=== PATIENT | female | born 1970 | race Caucasian/White ===

== ENCOUNTER 2017-03-16 05:48 | Emergency (ER) | payer SELFPAY ==
[2017-03-16 06:16] VITALS: BP 145/82
--- NOTE | 2017-03-16 09:11 | Emergency Department Report ---
ED Back Pain/Injury HPI - General Chief Complaint: Extremity Problem,Nontraumatic Stated Complaint: R LEG PAIN Time Seen by Provider: 03/16/17 08:39 Source: patient, family Limitations: No Limitations - History of Present Illness Initial Comments: Patient here with her daughter and patient reports that she is having shooting pain from her right buttocks down her right leg. She says she's been having this issue for over a year. She denies any injury. She said pain is 7 out of 10 to right leg and 9 at attend to her buttocks. Pain is burning pain. Denies any nausea or vomiting. Denies any urinary frequency or urgency. Denies any urinary burning. Denies any fever or chills. Denies any abdominal pain. Denies any loss of bowel or bladder function. He says she's never had an x-ray of her back and have not been diagnosed of any back problem. She says that she usually takes Motrin and it helps a little. 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 Last menstrual period was 03/09/2017. MD Complaint: back pain Onset/Timin Similar Symptoms Previously: Yes Place: work Radiation: buttocks, right leg Severity: severe Severity scale (0 -10): 9 Quality: burning Consistency: intermittent Improves With: immobilization Worsens With: movement, walking Context: while lifting, bending Associated Symptoms: denies: confusion, weakness, chest pain, numbness, difficulty walking, cough, difficulty urinating, diaphoresis, incontinence, fever/chills, constipation, headaches, abdominal pain, loss of appetite, malaise , nausea/vomiting, rash, seizure, shortness of breath, syncope Treatments Prior to Arrival: NSAIDS - Related Data Previous Rx's Medication Instructions Recorded Last Taken Type Cyclobenzaprine [Flexeril] 10 mg PO TID PRN #15 tablet 03/16/17 Unknown Rx Ibuprofen [Motrin] 600 mg PO Q8H PRN #15 tablet 03/16/17 Unknown Rx Allergies Allergy/AdvReac Type Severity Reaction Status Date / Time No Known Allergies Allergy Unverified 03/16/17 06:07 ED Review of Systems ROS: Stated complaint: R LEG PAIN Other details as noted in HPI Comment: All other systems reviewed and negative Constitutional: no symptoms reported Respiratory: no symptoms reported Cardiovascular: denies: chest pain, palpitations, edema, syncope Gastrointestinal: denies: abdominal pain, nausea, vomiting, diarrhea, constipation, hematemesis Musculoskeletal: arthralgia, other (denies in pain from right buttocks to right leg). denies: back pain, joint swelling, myalgia Skin: denies: rash Neurological: denies: headache, weakness, numbness, paresthesias, confusion, abnormal gait, vertigo ED Past Medical Hx - Past Medical History Previous Medical History?: Yes Hx Hypertension: Yes Additional medical history: Back pain - Surgical History Past Surgical History?: No - Family History Family history: no significant - Social History Smoking Status: Never Smoker Substance Use Type: None - Medications Home Medications: Home Medications Medication Instructions Recorded Confirmed Last Taken Type Cyclobenzaprine [Flexeril] 10 mg PO TID PRN #15 tablet 03/16/17 Unknown Rx Ibuprofen [Motrin] 600 mg PO Q8H PRN #15 tablet 03/16/17 Unknown Rx ED Physical Exam - General Limitations: No Limitations General appearance: alert, in no apparent distress - Head Head exam: Present: atraumatic, normocephalic, normal inspection - Eye Eye exam: Present: normal appearance, PERRL, EOMI. Absent: nystagmus Pupils: Present: normal accommodation - ENT ENT exam: Present: normal exam, normal orophraynx, mucous membranes moist - Neck Neck exam: Present: normal inspection, full ROM, other (no C-spine tenderness). Absent: tenderness, meningismus, lymphadenopathy - Respiratory Respiratory exam: Present: normal lung sounds bilaterally. Absent: respiratory distress, chest wall tenderness - Cardiovascular Cardiovascular Exam: Present: regular rate, normal rhythm, normal heart sounds. Absent: systolic murmur, diastolic murmur - GI/Abdominal GI/Abdominal exam: Present: soft, normal bowel sounds. Absent: distended, tenderness, guarding, rebound, rigid, organomegaly, mass, bruit, pulsatile mass , hernia - Extremities Exam Extremities exam: Present: normal inspection, full ROM, normal capillary refill , other (no clubbing, cyanosis or edema to extremities. +2 pulses to all extremities. Neurovascular compromise). Absent: tenderness, pedal edema, joint swelling, calf tenderness - Expanded Lower Extremity Exam Right Hip exam: Present: normal inspection, full ROM, pelvic stability. Absent: tenderness, swelling, abrasion, laceration, ecchymosis, deformity, crepidus, dislocation, erythema, external rotation, internal rotation, shortening Upper Leg exam: Present: normal inspection, full ROM. Absent: tenderness, swelling, abrasion, laceration, ecchymosis, deformity, crepidus, dislocation, erythema Knee exam: Present: normal inspection, full ROM, full knee extension. Absent: tenderness, swelling, abrasion, laceration, ecchymosis, deformity, crepidus, dislocation, erythema, effusion, pain w/ pronation/supination, posterior draw sign, pain/laxity with valgus, pain/laxity with varus Lower Leg exam: Present: normal inspection, full ROM. Absent: tenderness, swelling, abrasion, laceration, ecchymosis, deformity, crepidus, dislocation, erythema, palpable cord, Isaac's sign Ankle exam: Present: normal inspection, full ROM. Absent: tenderness, swelling , abrasion, laceration, ecchymosis, deformity, crepidus, dislocation, erythema Foot/Toe exam: Present: normal inspection, full ROM. Absent: tenderness, swelling, abrasion, laceration, ecchymosis, deformity, crepidus, dislocation, erythema, amputation, puncture wound, foreign body, calcaneal tenderness, tenderness at base of 5th metatarsal, nail avulsion, subungual hematoma Neuro vascular tendon exam: Present: no vascular compromise. Absent: pulse deficit, abnormal cap refill, motor deficit, sensory deficit, tendon deficit, extremity cold to touch, pallor, abnormal 2-point discrimination, decreased fine /light touch, foot drop, peroneal nerve deficit, significant pain with passive ROM of distal joint Gait: Positive: observed and normal - Back Exam Back exam: Present: normal inspection, full ROM, CVA tenderness (L). Absent: tenderness, CVA tenderness (R), muscle spasm, paraspinal tenderness, vertebral tenderness, rash noted - Expanded Back Exam Expanded Back exam: Absent: saddle anesthesia Back exam: Negative Straight Leg Raising: Left, Right - Neurological Exam Neurological exam: Present: alert, oriented X3, normal gait, reflexes normal. Absent: motor sensory deficit - Expanded Neurological Exam Expanded Neurological exam: Absent: innattentive, memory loss-remote event, memory loss- recent event, ataxia, receptive aphasia, expressive aphasia, total aphasia, tremor, protecting the airway Patient oriented to: Present: person, place, time Speech: Present: fluid speech Cranial nerves: EOM's Intact: Normal, Gag Reflex: Normal, Tongue Deviation: Normal, Nystagmus: Normal, Facial Sensation: Normal Cerebellar function: Romberg: Normal Upper motor neuron: Pronator Drift: Normal, Sensory Extinction: Normal Sensory exam: Upper Extremity Light Touch: Normal, Upper Extremity Temperature: Normal, UE 2 Point Discrimination: Normal, Lower Extremity Light Touch: Normal, Lower Extremity Temperature: Normal, LE 2 Point Discrimination: Normal Motor strength exam: RUE: 5, LUE: 5, RLE: 5, LLE: 5 DTR: bicep (R): 2+, bicep (L): 2+, tricep (R): 2+, tricep (L): 2+, knee (R): 2+ , knee (L): 2+, ankle (R): 2+, ankle (L): 2+ Best Eye Response ([place]): (4) open spontaneously Best Motor Response (Kam): (6) obeys commands Best Verbal Response (Kam): (5) oriented Kam Total: 15 - Psychiatric Psychiatric exam: Present: normal affect, normal mood - Skin Skin exam: Present: warm, dry, intact, normal color. Absent: rash ED Course Vital Signs 03/16/17 03/16/17 06:09 09:28 Temperature 98 F Pulse Rate 68 Respiratory 12 16 Rate Blood Pressure 145/82 O2 Sat by Pulse 97 Oximetry - Reevaluation(s) Reevaluation #1: 03/16/17 10:26 Patient given Percocet 5/325 2 tablets and Flexeril 10 mg by mouth for relief of pain. ED Medical Decision Making - Lab Data Lab Results 03/16/17 Range/Units Unknown Urine Color Yellow (Yellow) Urine Turbidity Clear (Clear) Urine pH 6.0 (5.0-7.0) Ur Specific Rh[place] 1.018 (1.003-1.030) Urine Protein <15 mg/dl (Negative) mg/dL Urine Glucose (UA) Neg (Negative) mg/dL Urine Ketones Neg (Negative) mg/dL Urine Blood Mod (Negative) Urine Nitrite Neg (Negative) Urine Bilirubin Neg (Negative) Urine Urobilinogen < 2.0 (<2.0) mg/dL Ur Leukocyte Esterase Tr (Negative) Urine WBC (Auto) 5.0 (0.0-6.0) /HPF Urine RBC (Auto) 2.0 (0.0-6.0) /HPF U Epithel Cells (Auto) 2.0 (0-13.0) /HPF Urine Bacteria (Auto) 1+ (Negative) /HPF - Radiology Data Radiology results: report reviewed X-ray of lumbar sacral spine reveals mild to moderate degenerative disc disease and [place] arthropathy at L4 to 5 and L5 to S1. No acute processes. There is normal bony mineralization. Normal height and alignment of the vertebral body. No evidence for fracture or bone lesion - Medical Decision Making ED course: Patient here reports pain radiating from her right buttocks down her right leg. 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 X- ray of lumbar sacral spine reveal patient with mild to moderate degenerative disc disease and F[place] Arthropathy at L4 to L5 and L5 to S1. This was discussed the patient in detail and I discussed with her that she needs to follow-up with orthopedic doctor and they may refer her to that specializes in spine. She was given [place] 5/325 2 tablets and Flexeril 10 mg by mouth in emergency room which relieved her pain. Patient is able to ambulate without any difficulties and she has intact neurological and back exam. Patient also had urinalysis which showed mild bladder infection and I discussed with her the apparent antibiotic for 5 days. Patient does have a primary care physician that she says she goes to an [place] so I discussed with her that she needs to follow up with primary care physician regarding chronic back pain and follow- up urinalysis for urinary tract infection. I also discussed with her that I will refer her to orthopedic doctor and she'll need to call to set up follow-up visit for degenerative disc disease with radiculopathy pain. Patient with daughter and they voiced understanding of discharge diagnosis. Patient will be discharged home in stable condition from the emergency room with prescription for Flexeril and Motrin. Critical care attestation.: If time is entered above; I have spent that time in minutes in the direct care of this critically ill patient, excluding procedure time. ED Disposition Clinical Impression: Lumbar radiculopathy, right, Degenerative disc disease, lumbar, Acute cystitis without hematuria, Facet arthropathy, lumbosacral Disposition: DC-01 TO HOME OR SELFCARE Is pt being admited?: No Does the pt Need Aspirin: No Condition: Stable Instructions: Lumbar Radiculopathy (ED), Arthralgia (ED), Degenerative Disc Disease (ED), Urinary Tract Infection in Women (ED) Additional Instructions: follow-up with your primary care doctor Follow up with orthopedic doctor as instructed. The referral information and discharge paperwork Please do not drive or operate heavy machinery while taking Flexeril as this medication causes drowsiness Headache Motrin as needed for pain per prescription. Prescriptions: Cyclobenzaprine [Flexeril] 10 mg PO TID PRN #15 tablet PRN Reason: Muscle Spasm Ibuprofen [Motrin] 600 mg PO Q8H PRN #15 tablet PRN Reason: Pain Referrals: PRIMARY CARE, [Primary Care Provider] - 3-5 Days SHAI ECKERT MD [Staff Physician] - 3-5 Days Forms: Accompanied Note, Work/School Release Form(ED)
[2017-03-16] MEDS ORDERED: NORCO 5/325 PO ONE (09:12)
[2017-03-16] MEDS ORDERED: FLEXERIL PO ONE (09:12)
[2017-03-16 09:37] LABS: Bacteria,Urine 1+ /HPF (Negative); Bilirubin,Urine NEG (Negative); Blood,Urine MOD (Negative); Ketones,Urine NEG (Negative); Leukocyte Esterase,Urine TR (Negative); Nitrite,Urine NEG (Negative); Protein,Urine <15 mg/dL mg/dL (Negative); Urobilinogen,Urine < 2.0 mg/dL (<2.0)
--- NOTE | 2017-03-16 09:40 | XRay Report ---
AP AND LATERAL LUMBOSACRAL SPINE: History: Low back pain with sciatica. No comparison. There is normal bone mineralization. Normal height and alignment of the vertebral bodies. No evidence for fracture or bone lesion. Mild to moderate degenerative disc disease and facet arthropathy are identified at L4-5 and L5-S1. The remaining levels are within normal limits. The sacrum and SI joints are unremarkable. IMPRESSION: Mild to moderate degenerative disc disease and facet arthropathy at L4-5 and L5-S1. No acute process noted.
== END 2017-03-16 10:43 | disposition home or self-care (01) ==
LOC: ED 05:48
DX: M54.16 Radiculopathy, lumbar region (principal); M51.36 Other intervertebral disc degeneration, lumbar region; N30.00 Acute cystitis without hematuria; I10 Essential (primary) hypertension
CPT/HCPCS: 72100; 81001; 99284

== ENCOUNTER 2019-10-19 17:53 | Emergency (ER) | payer SELFPAY ==
[2019-10-19 18:01] VITALS: BP 151/86
--- NOTE | 2019-10-19 19:48 | Emergency Department Report ---
Chief Complaint: Pain General Stated Complaint: RT SHOULDER/LFT HAND PAIN Time Seen by Provider: 10/19/19 19:20 - HPI History of Present Illness: [place] interpretation by patient's daughter Patient is a 49-year-old female who presents emergency room with complaints of right shoulder pain and left hand pain that began yesterday. She states 3 days ago she was carrying a dresser and accidentally fell and hit her right shoulder and left hand. She states that initially it did not bother her and she continued moving without any difficulty. She states that yesterday she was moving something again and it began to cause pain. She denies any popping sensation. She denies any prior injury. She denies any numbness or weakness. She has a past medical history of hypertension, DM. She denies any allergies to medications. Vitals are stable On exam: No tenderness to palpation to the left upper extremity, full range of motion of the left upper extremity without any difficulty, no deformity, no edema, no ecchymosis, no abrasion, no laceration, neurovascularly intact, right deltoid tenderness to palpation, no crepitus, no deformities, no sulcus sign, clavicles are equal, no clavicular tenderness to palpation, no joint laxity, no edema, no ecchymosis, full passive range of motion of the right upper extremity, she has discomfort upon full flexion, neurovascularly intact No signs of acute fracture or dislocation Patient is presenting with muscular ttp Due to discomfort with full flexion advised patient that she needed to see an orthopedic doctor for evaluation of the rotator cuff, she has no obvious joint laxity at this time advised pt May alternate Tylenol or ibuprofen as needed for discomfort. May use ice pack, heating pad, rest, Epson salt bath. Follow-up with orthopedic doctor for reexamination and further management. Return to the emergency room for any new or worsening symptoms. Medical screening examination performed there is no threat to life or limb at this time Patient will be referred to orthopedic doctor Discussed strict return precautions - Exam Vital Signs: Vital Signs 10/19/19 17:58 Temperature 97 F L Pulse Rate 77 Respiratory 20 Rate Blood Pressure 151/86 O2 Sat by Pulse 96 Oximetry MSE screening note: Focused history and physical exam performed. ED Disposition for MSE Clinical Impression: Left hand pain Right shoulder pain Qualifiers: Chronicity: acute Qualified Code(s): M25.511 - Pain in right shoulder Disposition: Z-07 MED SCREENING EXAM-LEFT Is pt being admited?: No Does the pt Need Aspirin: No Condition: Stable Instructions: Muscle Strain (ED), Shoulder Sprain (ED) Additional Instructions: May alternate Tylenol or ibuprofen as needed for discomfort. May use ice pack, heating pad, rest, Epson salt bath. Follow-up with orthopedic doctor for reexamination and further management. Return to the emergency room for any new or worsening symptoms. Referrals: SHAI ECKERT MD [Staff Physician] - 3-5 Days [facility] [Provider Group] - 3-5 Days Time of Disposition: 19:48 Print Language: [place]IZ[place]
== END 2019-10-19 20:48 | disposition left against medical advice (07) ==
LOC: ED 17:53
DX: M25.511 Pain in right shoulder (principal); M25.542 Pain in joints of left hand
CPT/HCPCS: 99282

== ENCOUNTER 2021-02-08 18:57 | Emergency (ER) | payer SELFPAY ==
[2021-02-09 00:13] VITALS: BP 160/98
[2021-02-09] MEDS ORDERED: MORPHINE 4 MG/1 ML INJ IV ONE (00:23)
[2021-02-09] MEDS ORDERED: ONDANSETRON 4 MG/2 ML INJ IV ONE (00:23)
--- NOTE | 2021-02-09 00:26 | Emergency Department Report ---
ED General Adult HPI - General Chief complaint: Abdominal Pain Stated complaint: PAIN ON RT SIDE OF BODY Time Seen by Provider: 02/09/21 00:15 Source: patient Mode of arrival: Ambulatory Limitations: No Limitations - History of Present Illness Initial comments: 50-year-old female patient with history of diabetes and hyperlipidemia presents to the emergency department with complaints of right flank/right lower quadrant abdominal pain for 2 weeks, worsening for the last 4 days. Patient states she was evaluated at an outside clinic and diagnosed with a urinary tract infection. However, she was reportedly not prescribed antibiotics. She did not undergo any imaging at that time. Patient has been vomiting intermittently since her pain began. No vomiting in the last 24 hours. No history of prior abdominal surgeries. No history of similar symptoms. Denies fever, chills, diarrhea, constipation, back pain, urinary retention, hematuria. Denies all other complaints at this time. - Related Data Previous Rx's Medication Instructions Recorded Last Taken Type Cyclobenzaprine [Flexeril] 10 mg PO TID PRN #15 tablet 03/16/17 Unknown Rx Ibuprofen [Motrin] 600 mg PO Q8H PRN #15 tablet 03/16/17 Unknown Rx Nitrofurantoin Monohyd/M-Cryst 100 mg PO BID #10 tab-cap 03/16/17 Unknown Rx [Macrobid 100 mg Capsule] Ondansetron [Zofran Odt] 4 mg PO Q4H #20 tab.rapdis 02/09/21 Unknown Rx Sulfamethoxazole/Trimethoprim 1 each PO BID 5 Days tablet 02/09/21 Unknown Rx [Bactrim DS TAB] Allergies Allergy/AdvReac Type Severity Reaction Status Date / Time No Known Allergies Allergy Unverified 03/16/17 06:07 ED Review of Systems ROS: Stated complaint: PAIN ON RT SIDE OF BODY Other details as noted in HPI Other: GENERAL: Negative for fever, chills, weight change, anorexia, fatigue. ENT: Negative for ear pain, difficulty hearing, sore throat, nasal congestion, epistaxis. CARDIOVASCULAR: Negative for chest pain, palpitations, lower extremity swelling. PULMONARY: Negative for cough, dyspnea, wheezing, orthopnea, cyanosis. GASTROINTESTINAL: Positive for flank pain, abdominal pain, nausea, vomiting. MUSCULOSKELETAL: Negative for joint pain, joint swelling, myalgias, back pain, n rebecca pain. NEUROLOGICAL: Negative for headache, seizure, syncope, paresthesias, weakness. INTEGUMENTARY: Negative for erythema, rash, diaphoresis, laceration, ecchymosis. HEMATOLOGICAL: Negative for hemoptysis, hematemesis, hematochezia, hematuria. PSYCHIATRIC: Negative for hallucinations, suicidal ideation, homicidal ideation, anxiety, depression. ED Past Medical Hx - Past Medical History Hx Hypertension: Yes Hx Diabetes: Yes Additional medical history: Back pain - Social History Smoking Status: Never Smoker Substance Use Type: None - Medications Home Medications: Home Medications Medication Instructions Recorded Confirmed Last Taken Type Cyclobenzaprine [Flexeril] 10 mg PO TID PRN #15 tablet 03/16/17 Unknown Rx Ibuprofen [Motrin] 600 mg PO Q8H PRN #15 tablet 03/16/17 Unknown Rx Nitrofurantoin Monohyd/M-Cryst 100 mg PO BID #10 tab-cap 03/16/17 Unknown Rx [Macrobid 100 mg Capsule] Ondansetron [Zofran Odt] 4 mg PO Q4H #20 tab.rapdis 02/09/21 Unknown Rx Sulfamethoxazole/Trimethoprim 1 each PO BID 5 Days tablet 02/09/21 Unknown Rx [Bactrim DS TAB] ED Physical Exam - General Limitations: No Limitations - Other Other exam information: General: Awake and alert. Appears uncomfortable. Head: Atraumatic, normocephalic. Eyes: EOMI. Pupils are equal and round. Normal sclera and conjunctiva. ENT: Oral mucosa is moist. Normal pharyngeal exam. Neck: Supple. No lymphadenopathy. Pulmonary: No respiratory distress. Clear to auscultation bilaterally. Cardiac: Regular rate and rhythm. Pulses are palpable and equal bilaterally. No lower extremity cyanosis or edema. Skin: Warm and dry. No rashes. Abdomen: Soft, non-protuberant. Right flank and right lower quadrant tenderness without guarding, rigidity, or rebound. Bowel sounds are normal. No organomegaly or masses noted. Back: Normal alignment. No CVA tenderness. Extremities: Symmetrical. Full range of motion intact. Neurological: Alert and oriented, appropriately interactive, no focal deficits. Psych: Cooperative. Appropriate mood and affect. Speech is evenly metered. Thoughts are logically construed. ED Course Vital Signs 02/09/21 00:12 Temperature 98.0 F Pulse Rate 63 Respiratory 16 Rate Blood Pressure 160/98 [Left] O2 Sat by Pulse 98 Oximetry ED Medical Decision Making - Lab Data Result diagrams: 02/09/21 00:53 02/09/21 00:53 - Radiology Data [facility] [address] [place] [address] Cat Scan Report Signed Patient: CHEYANNE MARSHALL MR#: [id number] : 1970 Acct:[id number] Age/Sex: 50 / F ADM Date: 02/08/21 Loc: ED Attending Dr: Ordering Physician: NORMAN WYATT Date of Service: 02/09/21 Procedure(s): CT abdomen pelvis w con Accession Number(s): [id number] cc: NORMAN WYATT CT ABDOMEN AND PELVIS WITH CONTRAST HISTORY: RIGHT flank / R.L.Q. abd pain + vomiting, hx of Diabetes. COMPARISON: None. TECHNIQUE: CT images of the abdomen and pelvis were obtained following admini stration of intravenous contrast. All CT scans at this location are performed using CT dose reduction for ALARA by means of automated exposure control. CONTRAST: 100 ml of intravenous contrast administered. FINDINGS: Lungs/bones: There is a small pulmonary nodule within the right middle lobe measuring 4 mm. Lung bases appear normal. Diffuse fatty infiltration of the liver. The liver is enlarged. Adrenal glands, spleen, pancreas, gallbladder and upper GI tract appear normal. Bilateral kidneys appear normal without hydronephrosis. Appendix is not well seen. No free fluid is seen in the pelvis. No bowel obstruction is seen. No acute bone findings Abdomen/pelvis: IMPRESSION: 1. 4 mm nodule within the right middle lobe. Please see recommendations below. 2. Hepatomegaly with hepatic steatosis. 3. Appendix is not well visualized. No focal inflammatory change or evidence for acute appendicitis. No bowel obstruction. INCIDENTAL PULMONARY NODULE RECOMMENDATION RECOMMENDATION: Solid Nodule size <6 mm -- Single or Multiple - Low Risk Patient: No routine follow-up - High Risk Patient: Optional CT at 12 months Note These recommendations do not apply to lung cancer screening, patients with immunosuppression, or patients with known primary cancer. Note Newly detected indeterminate nodule in persons 35 years of age or older. Persons under the age of 35 should not receive follow-up unless there is a known primary cancer. Note Perifissural Nodule is a fissure-attached/subpleural, homogeneous, solid nodule that has smooth margins and an oval, lentiform, or triangular shape. They represent about 20% of nodules detected in lung cancer screening, are invariably benign, and do not require follow-up. Nodules 10 mm or larger (or those with suspicious features) will continue to be managed based on the size criteria. Low Risk Patient = minimal or absent history of smoking and of other known risk factors. High Risk Patient = history of smoking or of other known risk factors. Nodule dimensions are average of long and short axes, rounded to the nearest millimeter. Based on 2017 Fleischner Society Guidelines found in Radiology 2017 284:228- 243. https://doi.org/10.1148/radiol.5306654992 https://www.ncbi.nlm.nih.gov/pmc/articles/KWH1465795/ Signer Name: Fitz Morrison MD Signed: 02/09/2021 2:24 AM Workstation Name: [id number] Transcribed By: CW Dictated By: OSKAR MORRISON MD Electronically Authenticated By: OSKAR MORRISON MD Signed Date/Time: 02/09/21223 DD/ 1 TD/TT: - Medical Decision Making Differential diagnosis including but not limited to: pyelonephritis, nephrolithiasis, urinary tract infection, appendicitis, bowel obstruction, bowel perforation, pancreatitis, hepatobiliary disease On reevaluation, patient remains stable. Repeat abdominal exam is benign. Labs consistent with mild dehydration. Given IV fluids in the emergency department. Urinalysis consistent with UTI. CT of the abdomen/pelvis shows incidental pulmonary nodule and hepatomegaly/hepatic steatosis without evidence of acute intra-abdominal process. Patient has been provided with a hard copy of imaging results to take with her to her follow-up appointment with her primary care provider scheduled for February 12. Emphasized the importance of following up on incidental radiographic findings on an outpatient basis. Patient is afebrile, hemodynamically stable, tolerating oral intake without difficulty. No clinical indication for further diagnostic work-up on an emergent basis at this time. Patient will be discharged home with antibiotics for her urinary tract infection and instructed to follow-up with her primary care provider this week as scheduled. Patient expressed understanding and is agreeable to plan of care. Strict return precautions provided. Repeat exam is unremarkable and benign. History, exam, diagnostic testing, and current condition do not suggest worrisome pathology to warrant further testing, continued ED treatment, admission, or surgical evaluation at this point. Given the low probability of a significant medical illness, it would be more likely to result in harm than benefit to perform further testing at this stage. Discussed findings, presumptive diagnosis, need for follow-up and specific signs/symptoms that should prompt immediate return to the emergency department. Instructions were explained in detail to the patient in addition to giving written discharge information. Patient expressed understanding and was given the opportunity to ask questions, all of which were satisfactorily answered prior to discharge home. Critical care attestation.: If time is entered above; I have spent that time in minutes in the direct care of this critically ill patient, excluding procedure time. ED Disposition Clinical Impression: Mild dehydration, History of diabetes mellitus Urinary tract infection Qualifiers: Urinary tract infection type: acute cystitis Hematuria presence: without hematuria Qualified Code(s): N30.00 - Acute cystitis without hematuria Disposition: HOME / SELF CARE / HOMELESS Is pt being admited?: No Does the pt Need Aspirin: No Condition: Stable Instructions: Abdominal Pain (ED), Urinary Tract Infection, Adult, [id number] Additional Instructions: Take Tylenol every 4 hours and Motrin every 8 hours as needed for pain. Take Bactrim with food as directed. Take Zofran as directed for nausea/vomiting. Rest. Drink plenty of fluids. Follow-up with your primary care provider as scheduled on February 12. Bring a copy of today's imaging results with you to your follow-up appointment for your primary care provider to review. Return to the emergency department immediately for new or worsening symptoms. Specifically, return to the emergency department immediately for fever, worsening pain, dehydration, inability to use the bathroom, or any other concerns. Prescriptions: Sulfamethoxazole/Trimethoprim [Bactrim DS TAB] 1 each PO BID 5 Days tablet Ondansetron [Zofran Odt] 4 mg PO Q4H #20 tab.rapdis Referrals: PATY WALSH MD [Staff Physician] - 3-5 Days Time of Disposition: 02:52
[2021-02-09 01:32] LABS: Alanine Aminotransferase 44 units/L (7-56); Albumin 4.3 g/dL (3.9-5); BUN/Creatinine Ratio 25; Blood Urea Nitrogen 15 mg/dL (7-17); Hemolysis Index 37
[2021-02-09 01:45] LABS: Hematocrit 41.6 % (30.3-42.9); Hemoglobin 14.5 gm/dl (10.1-14.3); Mean Corpuscular HGB Conc 35 % (30-34); Mean Corpuscular Volume 89 fl (79-97); Platelet Count 186 K/mm3 (140-440); Red Blood Count 4.71 M/mm3 (3.65-5.03); Red Cell Distribution Width 12.6 % (13.2-15.2)
[2021-02-09 01:48] LABS: Bilirubin,Urine NEG (Negative); Blood,Urine NEG (Negative); Color,Urine Yellow (Yellow); Mucus,Urine FEW /HPF; Protein,Urine <15 mg/dL mg/dL (Negative); Urobilinogen,Urine < 2.0 mg/dL (<2.0)
[2021-02-09] MEDS ORDERED: SODIUM CHLORIDE 0.9% 1000 ML 1,000 ML IV ONE (01:49)
--- NOTE | 2021-02-09 02:29 | Cat Scan Report ---
CT ABDOMEN AND PELVIS WITH CONTRAST HISTORY: RIGHT flank / R.L.Q. abd pain + vomiting, hx of Diabetes. COMPARISON: None. TECHNIQUE: CT images of the abdomen and pelvis were obtained following administration of intravenous contrast. All CT scans at this location are performed using CT dose reduction for ALARA by means of automated exposure control. CONTRAST: 100 ml of intravenous contrast administered. FINDINGS: Lungs/bones: There is a small pulmonary nodule within the right middle lobe measuring 4 mm. Lung bas es appear normal. Diffuse fatty infiltration of the liver. The liver is enlarged. Adrenal glands, spl een, pancreas, gallbladder and upper GI tract appear normal. Bilateral kidneys appear normal without hydronephrosis. Appendix is not well seen. No free fluid is seen in the pelvis. No bowel obstruction is seen. No acute bone findings Abdomen/pelvis: IMPRESSION: 1. 4 mm nodule within the right middle lobe. Please see recommendations below. 2. Hepatomegaly with hepatic steatosis. 3. Appendix is not well visualized. No focal inflammatory change or evidence for acute appendicitis. No bowel obstruction. INCIDENTAL PULMONARY NODULE RECOMMENDATION RECOMMENDATION: Solid Nodule size <6 mm -- Single or Multiple - Low Risk Patient: No routine follow-up - High Risk Patient: Optional CT at 12 months Note These recommendations do not apply to lung cancer screening, patients with immunosuppression, o r patients with known primary cancer. Note Newly detected indeterminate nodule in persons 35 years of age or older. Persons under the age of 35 should not receive follow-up unless there is a known primary cancer. Note Perifissural Nodule is a fissure-attached/subpleural, homogeneous, solid nodule that has smooth margins and an oval, lentiform, or triangular shape. They represent about 20% of nodules detected in lung cancer screening, are invariably benign, and do not require follow-up. Nodules 10 mm or larger (or those with suspicious features) will continue to be managed based on the size criteria. Low Risk Patient = minimal or absent history of smoking and of other known risk factors. High Risk Patient = history of smoking or of other known risk factors. Nodule dimensions are average of long and short axes, rounded to the nearest millimeter. Based on 2017 Fleischner Society Guidelines found in Radiology 2017 284:228-243. https://doi.org/10.1148/radiol.4445635100 https://www.ncbi.nlm.nih.gov/pmc/articles/PTS5511395/ Signer Name: Fitz Morrison MD Signed: 02/09/2021 2:24 AM Workstation Name: [id number]
[2021-02-09 02:54] LABS: RBC Morphology Normal; Total Cells Counted 100
== END 2021-02-09 05:49 | disposition home or self-care (01) ==
LOC: ED 18:57
DX: E86.0 Dehydration (principal); N39.0 Urinary tract infection, site not specified; E11.9 Type 2 diabetes mellitus without complications; Z79.899 Other long term (current) drug therapy
CPT/HCPCS: 36415; 74177; 80053; 81001; 83690; 83735; 85007; 85025; 87086; 96374; 96375; 99284; J2270; J2405; Q9967

== ENCOUNTER 2022-02-04 23:03 | Emergency (ER) | payer SELFPAY ==
[2022-02-05 00:25] LABS: Alanine Aminotransferase 38 units/L (7-56); Albumin 4.2 g/dL (3.9-5); Blood Urea Nitrogen 11 mg/dL (7-17); Hemolysis Index 15
[2022-02-05 00:26] LABS: BUN/Creatinine Ratio 16; Bilirubin,Direct < 0.2 mg/dL (0-0.2)
[2022-02-05 00:32] LABS: Basophils % (Auto) 0.3 % (0.0-1.8); Eosinophils # (Auto) 0.1 K/mm3 (0.0-0.4); Eosinophils % (Auto) 1.4 % (0.0-4.3); Hematocrit 40.7 % (30.3-42.9); Hemoglobin 13.8 gm/dl (10.1-14.3); Lymphocytes # (Auto) 3.9 K/mm3 (1.2-5.4); Lymphocytes % (Auto) 39.1 % (13.4-35.0); Mean Corpuscular HGB Conc 34 % (30-34); Mean Corpuscular Volume 88 fl (79-97); Monocytes # (Auto) 0.6 K/mm3 (0.0-0.8); Monocytes % (Auto) 5.8 % (0.0-7.3); Platelet Count 214 K/mm3 (140-440); Red Blood Count 4.63 M/mm3 (3.65-5.03); Red Cell Distribution Width 12.3 % (13.2-15.2)
--- NOTE | 2022-02-05 00:54 | XRay Report ---
ABDOMEN 2 VIEWS INDICATION / CLINICAL INFORMATION: Abdominal Pain. COMPARISON: None available. FINDINGS: TUBES / LINES: None. BOWEL GAS PATTERN: No significant abnormality. Moderate to large stool burden throughout the colon. FREE AIR / EXTRALUMINAL GAS: None seen. ADDITIONAL FINDINGS: No significant additional findings. CHEST: Visualized chest shows no significant abnormality. IMPRESSION: 1. A nonobstructive bowel gas pattern is present with moderate to large stool burden throughout colon . Signer Name: Ismael Lawson II, MD Signed: 02/05/2022 12:50 AM Workstation Name: [id number]
[2022-02-05 03:57] LABS: Color,Urine Yellow (Yellow)
[2022-02-05 03:58] LABS: Mucus,Urine 1+ /HPF
--- NOTE | 2022-02-05 04:38 | Emergency Department Report ---
ED Abdominal Pain HPI - General Chief Complaint: Abdominal Pain Stated Complaint: PAIN LFT SIDE Time Seen by Provider: 02/05/22 04:12 Source: patient Mode of arrival: Ambulatory Limitations: No Limitations - History of Present Illness Initial Comments: Patient 51-year-old female who presents for left upper abdominal pain x3 days. Patient states 2 episodes of nausea and vomiting yesterday. Has been no fevers no chills symptoms are exacerbated by activity. Symptoms are relieved by nothing tried. Patient states 1 small bowel movement on yesterday. Patient is tolerating p.o. intake at this time. MD Complaint: abdominal pain - Related Data Previous Rx's Medication Instructions Recorded Last Taken Type Cyclobenzaprine [Flexeril] 10 mg PO TID PRN #15 tablet 03/16/17 Unknown Rx Ibuprofen [Motrin] 600 mg PO Q8H PRN #15 tablet 03/16/17 Unknown Rx Nitrofurantoin Monohyd/M-Cryst 100 mg PO BID #10 tab-cap 03/16/17 Unknown Rx [Macrobid 100 mg Capsule] Ondansetron [Zofran Odt] 4 mg PO Q4H #20 tab.rapdis 02/09/21 Unknown Rx Sulfamethoxazole/Trimethoprim 1 each PO BID 5 Days tablet 02/09/21 Unknown Rx [Bactrim DS TAB] bisacodyL [Dulcolax suppos] 10 mg CA QDAY PRN #7 supp.rect 02/05/22 Unknown Rx polyethylene glycoL 3350 [Miralax 17 gm PO BID 7 Days #14 packet 02/05/22 Unknown Rx 3350] Allergies Allergy/AdvReac Type Severity Reaction Status Date / Time No Known Allergies Allergy Unverified 03/16/17 06:07 ED Review of Systems ROS: Stated complaint: PAIN LFT SIDE Other details as noted in HPI Constitutional: denies: chills, fever Eyes: denies: eye pain, eye discharge, vision change ENT: denies: ear pain, throat pain Respiratory: denies: cough, shortness of breath, wheezing Cardiovascular: denies: chest pain, palpitations Endocrine: no symptoms reported Gastrointestinal: abdominal pain, nausea, vomiting, diarrhea, constipation. denies: melena, hematochezia Genitourinary: denies: urgency, dysuria, frequency, discharge Musculoskeletal: denies: back pain, joint swelling, arthralgia Skin: denies: rash, lesions Neurological: denies: headache, weakness, paresthesias, vertigo Psychiatric: denies: anxiety, depression Hematological/Lymphatic: denies: easy bleeding, easy bruising ED Past Medical Hx - Past Medical History Hx Hypertension: Yes Hx Diabetes: Yes Additional medical history: Back pain - Social History Smoking Status: Never Smoker Substance Use Type: None - Medications Home Medications: Home Medications Medication Instructions Recorded Confirmed Last Taken Type Cyclobenzaprine [Flexeril] 10 mg PO TID PRN #15 tablet 03/16/17 Unknown Rx Ibuprofen [Motrin] 600 mg PO Q8H PRN #15 tablet 03/16/17 Unknown Rx Nitrofurantoin Monohyd/M-Cryst 100 mg PO BID #10 tab-cap 03/16/17 Unknown Rx [Macrobid 100 mg Capsule] Ondansetron [Zofran Odt] 4 mg PO Q4H #20 tab.rapdis 02/09/21 Unknown Rx Sulfamethoxazole/Trimethoprim 1 each PO BID 5 Days tablet 02/09/21 Unknown Rx [Bactrim DS TAB] bisacodyL [Dulcolax suppos] 10 mg CA QDAY PRN #7 supp.rect 02/05/22 Unknown Rx polyethylene glycoL 3350 [Miralax 17 gm PO BID 7 Days #14 packet 02/05/22 Unknown Rx 3350] ED Physical Exam - General Limitations: No Limitations General appearance: alert, in no apparent distress - Head Head exam: Present: atraumatic, normocephalic - Eye Eye exam: Present: normal appearance, PERRL, EOMI - ENT ENT exam: Present: normal orophraynx, mucous membranes moist - Neck Neck exam: Present: normal inspection, full ROM. Absent: tenderness - Respiratory Respiratory exam: Present: normal lung sounds bilaterally. Absent: respiratory distress, wheezes, chest wall tenderness - Cardiovascular Cardiovascular Exam: Present: regular rate, normal rhythm, normal heart sounds. Absent: systolic murmur, diastolic murmur, rubs, gallop - GI/Abdominal GI/Abdominal exam: Present: soft, distended (Mildly distended), normal bowel sounds. Absent: tenderness, guarding, rebound, rigid, bruit, hernia - Rectal Rectal exam: Present: deferred - Extremities Exam Extremities exam: Present: normal inspection, full ROM, normal capillary refill. Absent: tenderness, pedal edema - Back Exam Back exam: Present: normal inspection, full ROM. Absent: CVA tenderness (R), CVA tenderness (L) - Neurological Exam Neurological exam: Present: alert, oriented X3, CN II-XII intact, normal gait, reflexes normal. Absent: motor sensory deficit - Expanded Neurological Exam Expanded Patient oriented to: Present: person, place, time Speech: Present: fluid speech Cranial nerves: EOM's Intact: Normal, Gag Reflex: Normal, Tongue Deviation: Normal Motor strength exam: RUE: 5, LUE: 5, RLE: 5, LLE: 5 Best Eye Response (Greene): (4) open spontaneously Best Motor Response (Kam): (6) obeys commands Best Verbal Response (Kam): (5) oriented Greene Total: 15 - Psychiatric Psychiatric exam: Present: normal affect, normal mood - Skin Skin exam: Present: warm, dry, intact, normal color. Absent: rash ED Course Vital Signs 02/04/22 23:53 Temperature 98.0 F Pulse Rate 68 Respiratory 16 Rate Blood Pressure 140/74 O2 Sat by Pulse 98 Oximetry ED Medical Decision Making - Lab Data Result diagrams: 02/04/22 23:56 02/04/22 23:56 Labs 02/04/22 02/04/22 02/04/22 23:56 23:56 23:56 WBC 10.1 RBC 4.63 Hgb 13.8 Hct 40.7 MCV 88 MCH 30 MCHC 34 RDW 12.3 L Plt Count 214 Lymph % (Auto) 39.1 H Garrett % (Auto) 5.8 Eos % (Auto) 1.4 Baso % (Auto) 0.3 Lymph # (Auto) 3.9 Garrett # (Auto) 0.6 Eos # (Auto) 0.1 Baso # (Auto) 0.0 Seg Neutrophils % 53.4 Seg Neutrophils # 5.4 Sodium 136 L Potassium 3.5 L Chloride 97.3 L Carbon Dioxide 30 Anion Gap 12 BUN 11 Creatinine 0.7 Estimated GFR > 60 BUN/Creatinine Ratio 16 Glucose 167 H Calcium 9.0 Total Bilirubin 0.20 Direct Bilirubin < 0.2 Indirect Bilirubin 0.0 AST 30 ALT 38 Alkaline Phosphatase 113 Total Protein 7.7 Albumin 4.2 Albumin/Globulin Ratio 1.2 Amylase 32 Lipase 32 Urine Color Urine Turbidity Specific [place] (Man) Ur Protein (Man) Ur Ketones (Man) Ur Nitrite (Man) Urine Bilirubin (Man) Leukocyte Esterase (Man) Urine WBC (Auto) Urine RBC (Auto) U Epithel Cells (Auto) Urine RBC (Manual) Hyaline Casts Urine Mucus 02/05/22 03:21 WBC RBC Hgb Hct MCV MCH MCHC RDW Plt Count Lymph % (Auto) Garrett % (Auto) Eos % (Auto) Baso % (Auto) Lymph # (Auto) Garrett # (Auto) Eos # (Auto) Baso # (Auto) Seg Neutrophils % Seg Neutrophils # Sodium Potassium Chloride Carbon Dioxide Anion Gap BUN Creatinine Estimated GFR BUN/Creatinine Ratio Glucose Calcium Total Bilirubin Direct Bilirubin Indirect Bilirubin AST ALT Alkaline Phosphatase Total Protein Albumin Albumin/Globulin Ratio Amylase Lipase Urine Color Yellow Urine Turbidity Clear Specific [place] (Man) 1.025 Ur Protein (Man) 1+ Ur Ketones (Man) Negative Ur Nitrite (Man) Negative Urine Bilirubin (Man) Negative Leukocyte Esterase (Man) Negative Urine WBC (Auto) 4.0 Urine RBC (Auto) 2.0 U Epithel Cells (Auto) 1.0 Urine RBC (Manual) Negative Hyaline Casts 1.0 Urine Mucus 1+ - Radiology Data Radiology results: report reviewed, image reviewed ABDOMEN 2 VIEWS INDICATION / CLINICAL INFORMATION: Abdominal Pain. COMPARISON: None available. FINDINGS: TUBES / LINES: None. BOWEL GAS PATTERN: No significant abnormality. Moderate to large stool burden throughout the colon. FREE AIR / EXTRALUMINAL GAS: None seen. ADDITIONAL FINDINGS: No significant additional findings. CHEST: Visualized chest shows no significant abnormality. IMPRESSION: 1. A nonobstructive bowel gas pattern is present with moderate to large stool burden throughout colon. Signer Name: Morales Lawson II, MD Signed: 02/05/2022 12:50 AM Workstation Name: [id number] Transcribed By: SAAD Dictated By: MORALES LAWSON II, MD Electronically Authenticated By: MORALES LAWSON II, MD Signed Date/Time: 02/05/2249 DD/ TD/TT: - Medical Decision Making KUB consistent with constipation, plan treat for same. Patient is currently tolerating p.o. intake. There is no fevers no chills. Patient verbalized agreement and understanding of same. Patient DC'd to home and POV with family member at this time. Patient currently alert oriented x3 ambulatory tolerating p.o. intake without problems. Critical care attestation.: If time is entered above; I have spent that time in minutes in the direct care of this critically ill patient, excluding procedure time. ED Disposition Clinical Impression: Constipation Qualifiers: Constipation type: unspecified constipation type Qualified Code(s): K59.00 - Constipation, unspecified Disposition: 01 HOME / SELF CARE / HOMELESS Is pt being admited?: No Does the pt Need Aspirin: No Condition: Stable Instructions: Abdominal Pain (ED), Constipation, Adult, [id number], Probiotics Additional Instructions: Take medications as prescribed, follow-up with your doctor in 2 to 3 days. Return to emergency department should symptoms worsen. Prescriptions: bisacodyL [Dulcolax suppos] 10 mg CA QDAY PRN #7 supp.rect PRN Reason: Constipation polyethylene glycoL 3350 [Miralax 3350] 17 gm PO BID 7 Days #14 packet Referrals: KATHARINE WALDEN MD [Staff Physician] - 3-5 Days Forms: Work/School Release Form(ED) Time of Disposition: 04:43
[2022-02-05 05:44] VITALS: BP 136/70
== END 2022-02-05 04:54 | disposition home or self-care (01) ==
LOC: ED 23:03
DX: K59.00 Constipation, unspecified (principal); I10 Essential (primary) hypertension; E11.9 Type 2 diabetes mellitus without complications
CPT/HCPCS: 36415; 74019; 80048; 80076; 81001; 82150; 83690; 85025; 99283